=== PATIENT | female | born 1985 ===

== ENCOUNTER 2021-02-27 16:58 | Inpatient (IN) | payer BC ==
[~2021-02-27] VITALS: Ht 170.2 cm; Wt 74.0 kg
[2021-02-27 20:34] VITALS: BP 132/78
[2021-02-27 20:58] LABS: BASOPHILS % (AUTO) 1 % (0-1); EOSINOPHILS % (AUTO) 0 % (1-7); LYMPHOCYTES % (AUTO) 9 % (22-44); MEAN CORPUSCULAR HEMOGLOBIN 34.1 pg (27.0-34.8); MEAN CORPUSCULAR HGB CONC 33.4 g/dL (32.4-35.8); MEAN PLATELET VOLUME 9.3 fL (7.4-10.4); MONOCYTES % (AUTO) 2 % (2-9); NEUTROPHILS % (AUTO) 89 % (42-75); PLATELET COUNT 195 x10^3/uL (130-400); RED BLOOD COUNT 4.42 x10^6/uL (3.82-5.3); RED CELL DISTRIBUTION WIDTH 14.3 % (9.6-15.2)
[2021-02-27 20:59] LABS: MD NO
[2021-02-27] MEDS ORDERED: PLEASE ENTER HEIGHT AND WEIGHT MC SCH (21:00)
[2021-02-27 21:03] LABS: PROTEIN/CREATININE RATIO,URINE < 289 (0-200); TOTAL PROTEIN,URINE RANDOM < 5 mg/dL (0-12)
[2021-02-27 21:11] LABS: ALANINE AMINOTRANSFERASE 20 U/L (12-78); ALBUMIN 2.9 g/dL (3.4-5.0); ANION GAP 9 mmol/L (5-15); CALCIUM 8.5 mg/dL (8.5-10.1); CHLORIDE 111 mmol/L (98-107); CREATININE 0.79 mg/dL (0.55-1.02)
[2021-02-27 21:13] LABS: ALKALINE PHOSPHATASE 139 U/L (45-117); BILIRUBIN,TOTAL 0.1 mg/dL (0.2-1.0)
[2021-02-27] MEDS ORDERED: ASPI81TA59 PO (22:36)
[2021-02-27] MEDS ORDERED: PREN1TAB98 PO (22:36)
[2021-02-27] MEDS ORDERED: [UNRECOGNIZED DRUG - REMARK] PO SCH (23:00)
[2021-02-27] MEDS: PRENATAL VIT/IRON/FA 1 EACH TABLET PO SCH (23:11)
[2021-02-27] MEDS: ASPIRIN 81 MG TABLET CHEW PO SCH (23:11)
[2021-02-27 23:16] LABS: MICROSCOPIC NOT IND
[2021-02-28] MEDS ORDERED: DIPHENHYDRAMINE 25 MG CAPSULE PO PRN (01:54)
[2021-02-28] MEDS ORDERED: DIPHENHYDRAMINE 25 MG CAPSULE ONE (01:55)
[2021-02-28 05:04] LABS: BASOPHILS % (AUTO) 1 % (0-1); EOSINOPHILS % (AUTO) 0 % (1-7); LYMPHOCYTES % (AUTO) 9 % (22-44); MEAN CORPUSCULAR HEMOGLOBIN 34.4 pg (27.0-34.8); MEAN CORPUSCULAR HGB CONC 33.8 g/dL (32.4-35.8); MEAN PLATELET VOLUME 9.1 fL (7.4-10.4); MONOCYTES % (AUTO) 5 % (2-9); NEUTROPHILS % (AUTO) 85 % (42-75); PLATELET COUNT 186 x10^3/uL (130-400); RED BLOOD COUNT 4.26 x10^6/uL (3.82-5.3); RED CELL DISTRIBUTION WIDTH 14.5 % (9.6-15.2)
[2021-02-28 05:06] LABS: MD NO
[2021-02-28 05:18] LABS: CHLORIDE 109 mmol/L (98-107)
[2021-02-28 05:28] LABS: ANION GAP 11 mmol/L (5-15); CALCIUM 8.8 mg/dL (8.5-10.1); CREATININE 0.79 mg/dL (0.55-1.02)
[2021-02-28 05:29] LABS: ALANINE AMINOTRANSFERASE 17 U/L (12-78); ALBUMIN 2.9 g/dL (3.4-5.0); ALKALINE PHOSPHATASE 127 U/L (45-117); BILIRUBIN,TOTAL 0.2 mg/dL (0.2-1.0); TOTAL PROTEIN 6.9 g/dL (6.4-8.2)
[2021-02-28] MEDS ORDERED: SODIUM CHLORIDE FLUSH 3ML SYRINGE IVF SCH (09:00)
[2021-02-28] MEDS ORDERED: DOCUSATE 100 MG CAPSULE ONE (09:13)
[2021-02-28] MEDS: DOCUSATE 100 MG CAPSULE PO PRN ×2 (09:14→21:43)
[2021-02-28] MEDS ORDERED: INSULIN LISPRO 100 UNITS/ML, PEN SQ-INSULIN STA (13:34)
[2021-02-28] MEDS ORDERED: ACETAMINOPHEN 325 MG TABLET PO ONE (16:30)
[2021-02-28] MEDS ORDERED: ACETAMINOPHEN 325 MG TABLET ONE (16:32)
[2021-02-28] MEDS ORDERED: BETAMETHASONE 6 MG/ML, 5ML IM SCH (17:30)
[2021-02-28] MEDS ORDERED: INSULIN LISPRO 100 UNITS/ML, PEN SQ-INSULIN ONE ×2 (17:30→18:30)
[2021-02-28 19:20] VITALS: BP 135/75
[2021-02-28] MEDS ORDERED: ASPIRIN 81 MG TABLET CHEW PO SCH (21:00)
[2021-02-28] MEDS: ASPIRIN 81 MG TABLET CHEW PO SCH (21:42)
[2021-02-28] MEDS: LABETALOL 100 MG TABLET PO SCH (21:42)
[2021-02-28] MEDS: PRENATAL VIT/IRON/FA 1 EACH TABLET PO SCH (21:42)
[2021-02-28] MEDS ORDERED: INSULIN NPH HUMAN 100 UNIT/ML, 3ML VIAL SQ-INSULIN ONE (22:00)
[2021-03-01 05:47] LABS: BASOPHILS % (AUTO) 0 % (0-1); EOSINOPHILS % (AUTO) 0 % (1-7); LYMPHOCYTES % (AUTO) 9 % (22-44); MEAN CORPUSCULAR HEMOGLOBIN 34.4 pg (27.0-34.8); MEAN CORPUSCULAR HGB CONC 34.1 g/dL (32.4-35.8); MEAN PLATELET VOLUME 9.7 fL (7.4-10.4); MONOCYTES % (AUTO) 5 % (2-9); NEUTROPHILS % (AUTO) 85 % (42-75); PLATELET COUNT 187 x10^3/uL (130-400); RED BLOOD COUNT 4.08 x10^6/uL (3.82-5.3); RED CELL DISTRIBUTION WIDTH 14.7 % (9.6-15.2)
[2021-03-01 05:57] LABS: ALBUMIN 2.7 g/dL (3.4-5.0); ANION GAP 9 mmol/L (5-15); CALCIUM 8.8 mg/dL (8.5-10.1); CHLORIDE 110 mmol/L (98-107); MD NO
[2021-03-01 06:01] LABS: ALANINE AMINOTRANSFERASE 19 U/L (12-78); ALKALINE PHOSPHATASE 123 U/L (45-117); BILIRUBIN,TOTAL 0.2 mg/dL (0.2-1.0); TOTAL PROTEIN 6.5 g/dL (6.4-8.2)
[2021-03-01] MEDS ORDERED: INSULIN LISPRO 100 UNITS/ML, PEN SQ-INSULIN ONE (08:00)
[2021-03-01] MEDS ORDERED: INSULIN NPH HUMAN 100 UNIT/ML, 3ML VIAL SQ-INSULIN ONE ×2 (08:00→22:30)
[2021-03-01] MEDS: DOCUSATE 100 MG CAPSULE PO PRN ×2 (09:10→20:29)
[2021-03-01] MEDS: LABETALOL 100 MG TABLET PO SCH ×2 (09:10→20:29)
[2021-03-01] MEDS ORDERED: ACETAMINOPHEN 325 MG TABLET ONE (13:44)
[2021-03-01] MEDS: ACETAMINOPHEN 325 MG TABLET PO PRN (13:46)
[2021-03-01] MEDS: ASPIRIN 81 MG TABLET CHEW PO SCH (20:29)
[2021-03-01] MEDS: PRENATAL VIT/IRON/FA 1 EACH TABLET PO SCH (20:29)
[2021-03-01 20:30] VITALS: BP 161/77
[2021-03-02 07:21] VITALS: BP 140/73
[2021-03-02] MEDS: LABETALOL 100 MG TABLET PO SCH ×2 (08:41→20:18)
[2021-03-02 20:00] VITALS: BP 127/66
[2021-03-02] MEDS: PRENATAL VIT/IRON/FA 1 EACH TABLET PO SCH (20:18)
[2021-03-02] MEDS: ACETAMINOPHEN 325 MG TABLET PO PRN (20:18)
[2021-03-02] MEDS: ASPIRIN 81 MG TABLET CHEW PO SCH (20:18)
[2021-03-02] MEDS ORDERED: INSULIN NPH HUMAN 100 UNIT/ML, 3ML VIAL SQ-INSULIN ONE (22:00)
[2021-03-03 07:36] VITALS: BP 135/75
[2021-03-03] MEDS: LABETALOL 100 MG TABLET PO SCH ×3 (07:44→22:00)
[2021-03-03 08:12] LABS: BASOPHILS % (AUTO) 0 % (0-1); EOSINOPHILS % (AUTO) 0 % (1-7); LYMPHOCYTES % (AUTO) 19 % (22-44); MEAN CORPUSCULAR HGB CONC 32.9 g/dL (32.4-35.8); MEAN PLATELET VOLUME 9.9 fL (7.4-10.4); MONOCYTES % (AUTO) 12 % (2-9); NEUTROPHILS % (AUTO) 69 % (42-75); PLATELET COUNT 183 x10^3/uL (130-400); RED BLOOD COUNT 4.15 x10^6/uL (3.82-5.3); RED CELL DISTRIBUTION WIDTH 14.9 % (9.6-15.2)
[2021-03-03 08:15] LABS: MD NO
[2021-03-03 08:19] LABS: ALANINE AMINOTRANSFERASE 379 U/L (12-78); ALBUMIN 2.7 g/dL (3.4-5.0); ANION GAP 6 mmol/L (5-15); CALCIUM 8.7 mg/dL (8.5-10.1); CHLORIDE 110 mmol/L (98-107)
[2021-03-03 08:21] LABS: ALKALINE PHOSPHATASE 125 U/L (45-117); BILIRUBIN,TOTAL 0.3 mg/dL (0.2-1.0); TOTAL PROTEIN 6.3 g/dL (6.4-8.2)
[2021-03-03] MEDS ORDERED: NEWBORN KIT ONE (10:59)
[2021-03-03] MEDS ORDERED: FENTANYL PF 100 MCG/2ML IVPush PRN (11:00)
[2021-03-03] MEDS ORDERED: TERBUTALINE 1 MG/ML, 1ML IVPush PRN (11:00)
[2021-03-03] MEDS ORDERED: OXYTOCIN 30U/ 0.9% NaCL 500ML 500 ML IV ONE (11:00)
[2021-03-03] MEDS ORDERED: SODIUM CHLORIDE FLUSH 10ML SYR IVF PRN (11:00)
[2021-03-03] MEDS ORDERED: TERBUTALINE 1 MG/ML, 1ML SQ PRN (11:00)
[2021-03-03] MEDS ORDERED: MISOPROSTOL 25 MCG TABLET VG PRN (11:00)
[2021-03-03] MEDS ORDERED: ONDANSETRON 2MG/ML, 2ML IVPush PRN ×2 (11:00→19:00)
[2021-03-03] MEDS ORDERED: FENTANYL PF 100 MCG/2ML IV PRN ×2 (11:00→19:00)
[2021-03-03] MEDS: LACTATED RINGERS 1,000 ML IV SCH ×4 (12:16→19:00)
[2021-03-03 16:16] LABS: BASOPHILS % (AUTO) 1 % (0-1); EOSINOPHILS % (AUTO) 0 % (1-7); LYMPHOCYTES % (AUTO) 19 % (22-44); MEAN CORPUSCULAR HEMOGLOBIN 33.9 pg (27.0-34.8); MEAN PLATELET VOLUME 9.1 fL (7.4-10.4); MONOCYTES % (AUTO) 11 % (2-9); NEUTROPHILS % (AUTO) 69 % (42-75); PLATELET COUNT 188 x10^3/uL (130-400); RED BLOOD COUNT 4.09 x10^6/uL (3.82-5.3); RED CELL DISTRIBUTION WIDTH 14.4 % (9.6-15.2)
[2021-03-03 16:22] LABS: ALANINE AMINOTRANSFERASE 646 U/L (12-78); ALBUMIN 2.6 g/dL (3.4-5.0); ANION GAP 7 mmol/L (5-15); CALCIUM 8.6 mg/dL (8.5-10.1); CHLORIDE 112 mmol/L (98-107); CREATININE 0.84 mg/dL (0.55-1.02)
[2021-03-03 16:24] LABS: ALKALINE PHOSPHATASE 128 U/L (45-117); BILIRUBIN,TOTAL 0.3 mg/dL (0.2-1.0)
[2021-03-03 16:24] LABS: MD NO
[2021-03-03] MEDS ORDERED: SODIUM CITRATE/CITRIC ACID 15 ML UDC ONE (16:31)
[2021-03-03] MEDS ORDERED: METOCLOPRAMIDE 5 MG/ML, 2ML ONE (16:31)
[2021-03-03] MEDS ORDERED: FENTANYL PF 100 MCG/2ML ONE (17:04)
[2021-03-03] MEDS ORDERED: CEFAZOLIN 1,000 MG ONE (17:06)
[2021-03-03] MEDS ORDERED: OXYTOCIN 10 UNITS/ML, 1ML ONE (17:06)
[2021-03-03] MEDS ORDERED: morphine SULFATE 10 MG/ML, 1ML ONE (17:07)
[2021-03-03] MEDS ORDERED: METOCLOPRAMIDE 5 MG/ML, 2ML IV ONE (17:30)
[2021-03-03] MEDS ORDERED: LACTATED RINGERS 1,000 ML IVBOLUS ONE (17:30)
[2021-03-03] MEDS ORDERED: SODIUM CITRATE/CITRIC ACID 30 ML UDC PO ONE (17:30)
[2021-03-03] MEDS ORDERED: OXYTOCIN 30U/ 0.9% NaCL 500ML 500 ML ONE (17:44)
[2021-03-03] MEDS ORDERED: MISOPROSTOL 200 MCG TABLET ONE (18:59)
[2021-03-03] MEDS ORDERED: OXYcodone 5 MG/5 ML ORAL.SOL UDC PO PRN (19:00)
[2021-03-03] MEDS ORDERED: MISOPROSTOL 100 MCG TABLET PO ONE ×2 (19:00→19:30)
[2021-03-03] MEDS ORDERED: morphine SULFATE 10 MG/ML, 1ML IVPush PRN (19:00)
[2021-03-03] MEDS ORDERED: OXYcodone/APAP 5/325MG TABLET PO PRN (19:00)
[2021-03-03] MEDS ORDERED: CARBOPROST TROMETHAMINE 250 MCG/ML, 1ML IM PRN (19:00)
[2021-03-03] MEDS ORDERED: METOCLOPRAMIDE 5 MG/ML, 2ML IVPush PRN (19:00)
[2021-03-03] MEDS ORDERED: DIPHENHYDRAMINE 50 MG/ML, 1ML IVPush PRN (19:00)
[2021-03-03] MEDS ORDERED: LABETALOL 5MG/ML, 20ML IV PRN (19:00)
[2021-03-03] MEDS ORDERED: hydrALAzine 20 MG/ML, 1ML IV PRN (19:00)
[2021-03-03] MEDS ORDERED: MEPERIDINE/PF 25MG/0.5ML IVPush PRN (19:00)
[2021-03-03] MEDS ORDERED: MISOPROSTOL 200 MCG TABLET PR PRN (19:00)
[2021-03-03] MEDS: OXYTOCIN 30U/ 0.9% NaCL 500ML 500 ML IV SCH (19:16)
[2021-03-03] MEDS: PRENATAL VIT/IRON/FA 1 EACH TABLET PO SCH (21:00)
[2021-03-03 21:12] VITALS: BP 131/88
[2021-03-03 22:03] LABS: BASOPHILS % (AUTO) 0 % (0-1); EOSINOPHILS % (AUTO) 0 % (1-7); LYMPHOCYTES % (AUTO) 18 % (22-44); MEAN CORPUSCULAR HEMOGLOBIN 33.9 pg (27.0-34.8); MEAN CORPUSCULAR HGB CONC 33.2 g/dL (32.4-35.8); MEAN PLATELET VOLUME 9.3 fL (7.4-10.4); MONOCYTES % (AUTO) 10 % (2-9); NEUTROPHILS % (AUTO) 72 % (42-75); PLATELET COUNT 177 x10^3/uL (130-400); RED BLOOD COUNT 4.06 x10^6/uL (3.82-5.3); RED CELL DISTRIBUTION WIDTH 14.4 % (9.6-15.2)
[2021-03-03 22:05] LABS: MD NO
[2021-03-03 22:11] LABS: ALANINE AMINOTRANSFERASE 558 U/L (12-78); ALBUMIN 2.4 g/dL (3.4-5.0); ANION GAP 6 mmol/L (5-15); CALCIUM 8.2 mg/dL (8.5-10.1); CHLORIDE 112 mmol/L (98-107); CREATININE 0.82 mg/dL (0.55-1.02)
[2021-03-03 22:13] LABS: ALKALINE PHOSPHATASE 124 U/L (45-117); BILIRUBIN,TOTAL 0.3 mg/dL (0.2-1.0); TOTAL PROTEIN 5.8 g/dL (6.4-8.2)
[2021-03-03] MEDS: OXYcodone IR 5MG TABLET PO PRN (23:57)
[2021-03-04] MEDS: LACTATED RINGERS 1,000 ML IV SCH ×3 (03:00→11:00)
[2021-03-04] MEDS: OXYcodone IR 5MG TABLET PO PRN ×5 (04:40→23:06)
[2021-03-04] MEDS: OXYTOCIN 30U/ 0.9% NaCL 500ML 500 ML IV SCH (05:00)
[2021-03-04 05:38] VITALS: BP 138/60
[2021-03-04 06:00] LABS: ALBUMIN 2.3 g/dL (3.4-5.0); ANION GAP 6 mmol/L (5-15); CALCIUM 8.1 mg/dL (8.5-10.1); CHLORIDE 110 mmol/L (98-107)
[2021-03-04 06:04] LABS: ALANINE AMINOTRANSFERASE 487 U/L (12-78); ALKALINE PHOSPHATASE 110 U/L (45-117); BILIRUBIN,TOTAL 0.3 mg/dL (0.2-1.0); CREATININE 0.85 mg/dL (0.55-1.02); TOTAL PROTEIN 5.5 g/dL (6.4-8.2)
[2021-03-04] MEDS: ACETAMINOPHEN 325 MG TABLET PO PRN ×4 (08:13→23:06)
[2021-03-04 08:45] VITALS: BP 145/69
[2021-03-04] MEDS: DOCUSATE 100 MG CAPSULE PO PRN ×2 (08:45→23:06)
[2021-03-04] MEDS: PRENATAL VIT/IRON/FA 1 EACH TABLET PO SCH (08:45)
[2021-03-04] MEDS: ONDANSETRON 2MG/ML, 2ML IV PRN (12:13)
[2021-03-04 13:04] VITALS: BP 132/90
[2021-03-04 13:39] LABS: BASOPHILS % (AUTO) 1 % (0-1); EOSINOPHILS % (AUTO) 0 % (1-7); LYMPHOCYTES % (AUTO) 16 % (22-44); MEAN CORPUSCULAR HEMOGLOBIN 34.1 pg (27.0-34.8); MEAN CORPUSCULAR HGB CONC 33.1 g/dL (32.4-35.8); MONOCYTES % (AUTO) 13 % (2-9); NEUTROPHILS % (AUTO) 71 % (42-75); PLATELET COUNT 188 x10^3/uL (130-400); RED BLOOD COUNT 4.08 x10^6/uL (3.82-5.3); RED CELL DISTRIBUTION WIDTH 14.4 % (9.6-15.2)
[2021-03-04 14:18] LABS: MD SCAN
[2021-03-04 16:45] VITALS: BP 136/78
[2021-03-04 20:20] VITALS: BP 146/89
[2021-03-05] VITALS (9 sets, daily range): BP systolic 137–171; BP diastolic 81–97
[2021-03-05] MEDS: ACETAMINOPHEN 325 MG TABLET PO PRN ×4 (02:59→20:59)
[2021-03-05] MEDS: OXYcodone IR 5MG TABLET PO PRN ×4 (03:00→21:00)
[2021-03-05 05:58] LABS: ALANINE AMINOTRANSFERASE 351 U/L (12-78); ALBUMIN 2.9 g/dL (3.4-5.0); ANION GAP 5 mmol/L (5-15); CHLORIDE 107 mmol/L (98-107); CREATININE 0.96 mg/dL (0.55-1.02)
[2021-03-05 06:00] LABS: ALKALINE PHOSPHATASE 132 U/L (45-117); BILIRUBIN,TOTAL 0.4 mg/dL (0.2-1.0); TOTAL PROTEIN 7.1 g/dL (6.4-8.2)
[2021-03-05] MEDS: PRENATAL VIT/IRON/FA 1 EACH TABLET PO SCH (08:35)
[2021-03-05] MEDS: DOCUSATE 100 MG CAPSULE PO PRN ×2 (08:35→20:59)
[2021-03-05] MEDS: SIMETHICONE 80 MG CHEW TAB PO PRN ×2 (08:35→20:59)
[2021-03-05] MEDS: ONDANSETRON 2MG/ML, 2ML IV PRN ×2 (08:37→23:47)
[2021-03-06] MEDS: ACETAMINOPHEN 325 MG TABLET PO PRN ×5 (01:33→20:11)
[2021-03-06] MEDS: OXYcodone IR 5MG TABLET PO PRN ×5 (01:37→20:11)
[2021-03-06 04:40] VITALS: BP 151/85
[2021-03-06 06:18] LABS: BASOPHILS % (AUTO) 1 % (0-1); EOSINOPHILS % (AUTO) 1 % (1-7); LYMPHOCYTES % (AUTO) 21 % (22-44); MEAN CORPUSCULAR HEMOGLOBIN 34.2 pg (27.0-34.8); MEAN CORPUSCULAR HGB CONC 33.4 g/dL (32.4-35.8); MEAN PLATELET VOLUME 8.6 fL (7.4-10.4); MONOCYTES % (AUTO) 11 % (2-9); NEUTROPHILS % (AUTO) 66 % (42-75); PLATELET COUNT 201 x10^3/uL (130-400); RED CELL DISTRIBUTION WIDTH 14.3 % (9.6-15.2)
[2021-03-06 06:36] LABS: ALBUMIN 2.6 g/dL (3.4-5.0); ANION GAP 7 mmol/L (5-15); CALCIUM 8.9 mg/dL (8.5-10.1); CHLORIDE 106 mmol/L (98-107)
[2021-03-06 06:39] LABS: ALANINE AMINOTRANSFERASE 217 U/L (12-78); ALKALINE PHOSPHATASE 116 U/L (45-117); BILIRUBIN,TOTAL 0.2 mg/dL (0.2-1.0); CREATININE 0.84 mg/dL (0.55-1.02); TOTAL PROTEIN 6.5 g/dL (6.4-8.2)
[2021-03-06 06:57] LABS: MD SCAN
[2021-03-06 08:36] VITALS: BP 174/94
[2021-03-06] MEDS: niFEDipine ER 60 MG TABLET.ER PO SCH (08:36)
[2021-03-06] MEDS: DOCUSATE 100 MG CAPSULE PO PRN ×2 (08:36→20:10)
[2021-03-06] MEDS: PRENATAL VIT/IRON/FA 1 EACH TABLET PO SCH (08:36)
[2021-03-06] MEDS: SIMETHICONE 80 MG CHEW TAB PO PRN ×2 (08:36→20:10)
[2021-03-06 09:20] VITALS: BP 149/94
[2021-03-06 12:15] VITALS: BP 128/87
[2021-03-06] MEDS ORDERED: MORPHINE SULFATE 4 MG/ML, 1ML IVPush ONE (13:00)
[2021-03-06 16:05] VITALS: BP 110/65
[2021-03-06 19:45] VITALS: BP 136/77
[2021-03-07] MEDS: ACETAMINOPHEN 325 MG TABLET PO PRN ×3 (00:31→08:08)
[2021-03-07] MEDS: OXYcodone IR 5MG TABLET PO PRN ×3 (00:31→08:09)
[2021-03-07 00:35] VITALS: BP 142/82
[2021-03-07 04:40] VITALS: BP 146/89
[2021-03-07 05:42] LABS: BASOPHILS % (AUTO) 1 % (0-1); EOSINOPHILS % (AUTO) 1 % (1-7); LYMPHOCYTES % (AUTO) 27 % (22-44); MEAN CORPUSCULAR HEMOGLOBIN 34.4 pg (27.0-34.8); MEAN CORPUSCULAR HGB CONC 33.7 g/dL (32.4-35.8); MEAN PLATELET VOLUME 8.5 fL (7.4-10.4); MONOCYTES % (AUTO) 11 % (2-9); NEUTROPHILS % (AUTO) 61 % (42-75); PLATELET COUNT 202 x10^3/uL (130-400); RED BLOOD COUNT 3.84 x10^6/uL (3.82-5.3); RED CELL DISTRIBUTION WIDTH 14.4 % (9.6-15.2)
[2021-03-07 05:49] LABS: MD NO
[2021-03-07 05:55] LABS: ALBUMIN 2.5 g/dL (3.4-5.0); ANION GAP 5 mmol/L (5-15); CALCIUM 8.5 mg/dL (8.5-10.1); CHLORIDE 108 mmol/L (98-107)
[2021-03-07 05:59] LABS: ALANINE AMINOTRANSFERASE 158 U/L (12-78); ALKALINE PHOSPHATASE 106 U/L (45-117); BILIRUBIN,TOTAL 0.2 mg/dL (0.2-1.0); TOTAL PROTEIN 6.2 g/dL (6.4-8.2)
[2021-03-07] MEDS: DOCUSATE 100 MG CAPSULE PO PRN (08:08)
[2021-03-07] MEDS: PRENATAL VIT/IRON/FA 1 EACH TABLET PO SCH (08:08)
[2021-03-07] MEDS: niFEDipine ER 60 MG TABLET.ER PO SCH (08:08)
[2021-03-07 08:26] VITALS: BP 148/99
[2021-03-07] MEDS ORDERED: NIFE60TA13 PO (08:53)
[2021-03-07] MEDS ORDERED: DOCU-131 PO (08:53)
[2021-03-07] MEDS ORDERED: OXYC1TAB14 PO (08:53)
[2021-03-07 10:00] VITALS: BP 133/85
== END 2021-03-07 11:25 | disposition home or self-care (01) | DRG 788 ==
LOC: LDIP 19:50 → 2NE 03-03 20:25 → 2NW 03-04 08:15
PROVIDERS: ADMIT Obstetrics & Gynecology Maternal & Fetal Medicine; ATTEND Obstetrics & Gynecology Maternal & Fetal Medicine
PROC: 10D00Z1 Extraction of Products of Conception, Low, Open Approach (ICD-10-PCS; principal; 2021-03-03)
DX: O14.14 Severe pre-eclampsia complicating childbirth (principal); O24.420 Gestational diabetes mellitus in childbirth, diet controlled; O36.5930 Maternal care for other known or suspected poor fetal growth, third trimester, not applicable or unspecified; O69.81X0 Labor and delivery complicated by cord around neck, without compression, not applicable or unspecified; Z37.0 Single live birth; Z3A.36 36 weeks gestation of pregnancy
CPT/HCPCS: 36415; 80053; 81003; 82570; 82962; 83021; 84156; 84550; 85025; 85660; 86592; 86850; 86900; 86923; 87081; 88307; G0378; J0690; J0702; J1815; J2405; J3010; J2270; J2590; J2765; J7120; Q0163